=== PATIENT | male | born 1975 | race Two or more races ===

== ENCOUNTER 2017-05-07 21:24 | Emergency (ER) | payer OTHER ==
[~2017-05-07] VITALS: Ht 167.6 cm; Wt 90.7 kg
[~2017-05-07 21:24] MED LIST: IBUPROFEN600 MG ORAL; NKM; OMEPRAZOLE40 M1 ORAL; ZANTAC150 MG ORAL; ZOFRAN ODT8 MG ORAL
--- NOTE | 2017-05-07 21:40 | Emergency Room Report ---
History of Present Illness General Chief Complaint: To Be Triaged Source: Patient Present Illness HPI Is a 40-year-old male with history of diabetes but not on medication. He presents with chief complaint initially of chest pain. In reality, he had abdominal cramps with vomiting and diarrhea. Onset this morning. Multiple episode vomiting. Profuse watery diarrhea all day. Subjective fever. Chest pain occurred after vomiting. No shortness of breath. No exertional component. No diaphoresis, no radiation. Allergies: Coded Allergies: No Known Allergies (Unverified , 01/15/16) Patient History Past Medical History: see triage record, old chart reviewed, DM Past Surgical History: other Pertinent Family History: none Social History: Denies: smoking Immunizations: other Reviewed Nursing Documentation: PMH: Agreed, PSxH: Agreed Nursing Documentation-PMH Hx Gastrointestinal Problems: Yes - GERD Review of Systems Constitutional: Reports: fever, weakness Eye: Denies: eye pain, blurred vision ENT: Denies: ear pain, nose congestion, throat swelling Respiratory: Denies: cough, shortness of breath Cardiovascular: Denies: chest pain, palpitations Gastrointestinal: Reports: abdominal pain, diarrhea, nausea, vomiting Musculoskeletal: Denies: back pain, joint pain Skin: Denies: rash Neurological: Denies: headache, numbness Endocrine: Denies: increased thirst, increased urine Hematologic/Lymphatic: Denies: easy bruising All Other Systems: negative except mentioned in HPI Physical Exam vitals with tachycardia Sp02 EP Interpretation: reviewed, normal General Appearance: well appearing, no apparent distress, alert Head: normocephalic, atraumatic Eyes: bilateral eye PERRL, bilateral eye EOMI ENT: hearing grossly normal, normal pharynx Neck: full range of motion, supple, no meningismus Respiratory: chest non-tender, lungs clear, normal breath sounds Cardiovascular #1: regular rate, rhythm, no murmur, tachycardia Gastrointestinal: normal bowel sounds, non tender, no mass, no organomegaly, no bruit, non-distended Musculoskeletal: back normal, gait/station normal, normal range of motion Neurologic: alert, oriented x3 Psychiatric: mood/affect normal Skin: warm/dry Medical Decision Making Diagnostic Impression: Primary Impression: Hyperglycemia due to type 2 diabetes mellitus Qualified Codes: E11.65 - Type 2 diabetes mellitus with hyperglycemia Additional Impressions: Nausea vomiting and diarrhea Chest pain Qualified Codes: R07.9 - Chest pain, unspecified Methamphetamine abuse ER Course Present with atypical chest pain. Labs unremarkable. Pain is most likely secondary to vomiting. His heart rate was elevated. This is most likely secondary to drug abuse and dehydration from diarrhea and diabetes. Initially he claimed that methamphetamine was due to him touching it. He denies any ingestion. Heart rate improved. We'll discharge home. Lab Results Impression labs unremarkable except for elevated glucose EKG Diagnostic Results Rate: tachycardiac Rhythm: NSR ST Segments: no acute changes Rhythm Strip Diag. Results Rhythm Strip Time: 02:52 EP Interpretation: yes Rate: 107 Rhythm: NSR, no PVC's, no ectopy CT/MRI/US Diagnostic Results CT/MRI/US Diagnostic Results : Imaging Test Ordered: CT chest Impression read by radiologist. Negative. Status: improved Disposition: HOME, SELF-CARE Condition: Stable Scripts Metformin Hcl* (METFORMIN HCL*) 500 Mg Tablet 500 MG ORAL TWICE A DAY, #60 TAB Prov: SHANNON GREEN M.D. 05/08/17 Additional Instructions: Stop using drugs. Followup with your DrZan in 7 days. Take your diabetes medication. Return if symptom worsen. SHANNON GREEN M.D. May 07, 2017 21:40
[2017-05-07] MEDS ORDERED: Acetaminophen 500mg (ES) tab ORAL ONE (21:45)
[2017-05-07 22:14] LABS: BASOPHILS % (AUTO) 1.1 % (0.0-2.0); EOSINOPHILS % (AUTO) 0.5 % (0.0-3.0); LYMPHOCYTES % (AUTO) 6.7 % (20.0-45.0); MEAN CORPUSCULAR HEMOGLOBIN 29.9 PG (27.0-31.0); MEAN CORPUSCULAR HGB CONC 33.5 G/DL (32.0-36.0); MEAN CORPUSCULAR VOLUME 89 FL (80-99); MEAN PLATELET VOLUME 6.9 FL (6.5-10.1); MONOCYTES % (AUTO) 6.9 % (1.0-10.0); NEUTROPHILS % (AUTO) 84.7 % (45.0-75.0); PLATELET COUNT 269 K/UL (150-450); RED BLOOD COUNT 5.44 M/UL (4.70-6.10); RED CELL DISTRIBUTION WIDTH 11.3 % (11.6-14.8); WHITE BLOOD COUNT 9.6 K/UL (4.8-10.8)
[2017-05-07 22:36] LABS: ALBUMIN/GLOBULIN RATIO 1.2 (1.0-2.7); CALCIUM 9.7 mg/dL (8.6-10.2); CARBON DIOXIDE 20 mEQ/L (20-30); CREATININE 0.9 mg/dL (0.7-1.2); GLOMERULAR FILTRATION RATE > 60 mL/min (>60); HEMOLYSIS 45; LIPASE 95 U/L (< 60); TOTAL PROTEIN 6.7 g/dL (6.6-8.7)
[2017-05-07 22:37] LABS: ANION GAP 20 (5-15); CHLORIDE 83 mEQ/L (98-107); SODIUM 123 mEQ/L (135-145)
[2017-05-07 22:48] LABS: ALANINE AMINOTRANSFERASE 5 U/L (3-41); ASPARTATE AMINO TRANSFERASE < 5 U/L (5-40)
[2017-05-07 23:04] LABS: APPEARANCE,URINE CLEAR; KETONES,URINE 1+ (NEGATIVE); LEUKOCYTE ESTERASE ,URINE NEGATIVE (NEGATIVE); NITRITE,URINE NEGATIVE (NEGATIVE); PH,URINE 5 (4.5-8.0); PROTEIN,URINE 2+ (NEGATIVE); UROBILINOGEN,URINE NORMAL MG/DL (0.0-1.0)
[2017-05-07 23:15] LABS: BACTERIA,URINE FEW /HPF; RBC,URINE 0-2 /HPF (0 - 0); WBC,URINE 0-2 /HPF (0 - 0)
[2017-05-08] MEDS ORDERED: Morphine Sulfate 4mg/ml Inj IVP ONE (00:30)
[2017-05-08 00:42] LABS: TROPONIN I < 0.30 ng/mL (<=0.30)
[2017-05-08 01:14] VITALS: BP 144/89
[2017-05-08] MEDS ORDERED: METFORMIN HCL500 M1 ORAL (02:53)
[2017-05-08 03:32] VITALS: BP 138/91
--- NOTE | 2017-05-08 10:22 | Diagnostic Imaging Report ---
Indication: Chest pain Technique: Continuous helical transaxial imaging of the chest was obtained from the thoracic inlet to the upper abdomen during rapid intravenous contrast administration. Arterial phase of enhancement obtained. Coronal 2-D reformats were also obtained and maximum intensity projection images in multiple planes. Study obtained in a Siemens sensation [address] Total Dose length Product (DLP): [address] Dose Index Volume (CTDIvol): 2.17, 12.62x3, 30.87 mGy Comparison: None Findings: The pulmonary artery is well opacified and shows no filling defects. The lungs are clear. There is no adenopathy, pleural or pericardial effusions are identified. The aortic dissection or aneurysm identified within the chest. Visualized part of the upper abdomen is unremarkable. Impression: Negative CTA of the chest The CT scanner at [facility] is accredited by the [employer] and the scans are performed using dose optimization techniques as appropriate to a performed exam including Automatic Exposure control.
--- NOTE | 2017-05-16 23:23 | Cardiology Report ---
APPROVED REPORT EKG Measurement Heart [id number] Sinus tachycardia Possible Anterior infarct, age undetermined Abnormal ECG
== END 2017-05-08 02:55 | disposition home or self-care (01) ==
LOC: EMR 22:30
DX: E11.65 Type 2 diabetes mellitus with hyperglycemia (principal); R11.2 Nausea with vomiting, unspecified; R19.7 Diarrhea, unspecified; R07.89 Other chest pain; R10.9 Unspecified abdominal pain; R53.1 Weakness
CPT/HCPCS: 36415; 71275; 80053; 80300; 81003; 83690; 84484; 85025; 93005; 96361; 96374; 96375; 99284; J1815; J2270; J2405; Q9967

== ENCOUNTER 2018-07-31 18:13 | Emergency (ER) | payer OTHER ==
[~2018-07-31] VITALS: Ht 167.6 cm; Wt 88.0 kg
[~2018-07-31 18:13] MED LIST changes: +METFORMIN HCL500 M1 ORAL
--- NOTE | 2018-07-31 18:41 | Emergency Room Report ---
History of Present Illness General Chief Complaint: Flu Like Symptoms Source: Patient Present Illness HPI Patient presents with cough, wheezing and chest pain. It's been worsening over the course of 2 weeks. He was seen before and given Flonase but and some cough syrup but it it's gotten worse since that time. He did not get a flu shot this year. The patient is diabetic also. He's not sure how his sugars have been recently. He was sent here by his doctors because they heard wheezing. He's never used an inhaler in the past. He stopped smoking at least 20 years ago. Allergies: Coded Allergies: No Known Allergies (Unverified , 01/15/16) Patient History Past Medical History: see triage record Social History: Denies: smoking - prior Reviewed Nursing Documentation: PMH: Agreed; PSxH: Agreed Nursing Documentation-PMH Hx Hypertension: Yes Hx Diabetes: Yes Hx Gastrointestinal Problems: Yes - GERD Physical Exam Vital Signs Date Time Temp Pulse Resp B/P (MAP) Pulse Ox O2 Delivery O2 Flow Rate FiO2 07/31/18 18:22 98.1 126 26 95/60 96 Room Air Medical Decision Making Diagnostic Impression: Primary Impression: Atypical pneumonia Additional Impressions: Bronchospasm Hyperglycemia Renal insufficiency Laboratory Tests Test 07/31/18 19:05 07/31/18 20:30 White Blood Count 12.3 K/UL (4.8-10.8) H Red Blood Count 4.63 M/UL (4.70-6.10) L Hemoglobin 13.4 G/DL (14.2-18.0) L Hematocrit 39.1 % (42.0-52.0) L Mean Corpuscular Volume 84 FL (80-99) Mean Corpuscular Hemoglobin 29.0 PG (27.0-31.0) Mean Corpuscular Hemoglobin Concent 34.4 G/DL (32.0-36.0) Red Cell Distribution Width 10.7 % (11.6-14.8) L Platelet Count 412 K/UL (150-450) Mean Platelet Volume 7.1 FL (6.5-10.1) Neutrophils (%) (Auto) 73.7 % (45.0-75.0) Lymphocytes (%) (Auto) 19.1 % (20.0-45.0) L Monocytes (%) (Auto) 5.4 % (1.0-10.0) Eosinophils (%) (Auto) 0.6 % (0.0-3.0) Basophils (%) (Auto) 1.2 % (0.0-2.0) Sodium Level 129 MMOL/L (136-145) L Potassium Level 4.5 MMOL/L (3.5-5.1) Chloride Level 94 MMOL/L (98-107) L Carbon Dioxide Level 23 MMOL/L (21-32) Anion Gap 12 mmol/L (5-15) Blood Urea Nitrogen 17 mg/dL (7-18) Creatinine 1.6 MG/DL (0.55-1.30) H Estimate Glomerular Filtration Rate 47.0 mL/min (>60) Glucose Level 389 MG/DL (74-106) H Calcium Level 9.4 MG/DL (8.5-10.1) Total Bilirubin 0.4 MG/DL (0.2-1.0) Aspartate Amino Transferase (AST) 46 U/L (15-37) H Alanine Aminotransferase (ALT) 50 U/L (12-78) Alkaline Phosphatase 141 U/L (46-116) H Total Creatine Kinase 88 U/L (26-308) Troponin I 0.000 ng/mL (0.000-0.056) Total Protein 7.4 G/DL (6.4-8.2) Albumin 2.8 G/DL (3.4-5.0) L Globulin 4.6 g/dL Albumin/Globulin Ratio 0.6 (1.0-2.7) L Urine Color Pale yellow Urine Appearance Clear Urine pH 7 (4.5-8.0) Urine Specific [place] 1.010 (1.005-1.035) Urine Protein 2+ (NEGATIVE) H Urine Glucose (UA) 4+ (NEGATIVE) H Urine Ketones Negative (NEGATIVE) Urine Blood Negative (NEGATIVE) Urine Nitrite Negative (NEGATIVE) Urine Bilirubin Negative (NEGATIVE) Urine Urobilinogen Normal MG/DL (0.0-1.0) Urine Leukocyte Esterase 2+ (NEGATIVE) H Urine RBC 0-2 /HPF (0 - 0) H Urine WBC 2-4 /HPF (0 - 0) Urine Squamous Epithelial Cells Few /LPF (NONE/OCC) Urine Bacteria Occasional /HPF (NONE) Microbiology Date/Time Source Procedure Growth Status 07/31/18 19:05 Nasal Nares Influenza Types A,B Antigen (AVA) - Final Complete EKG Diagnostic Results Rate: tachycardiac ST Segments: no acute changes Rhythm Strip Diag. Results EP Interpretation: yes Rhythm: NSR, no PVC's, no ectopy Chest X-Ray Diagnostic Results Chest X-Ray Diagnostic Results : Chest X-Ray Ordered: Yes # of Views/Limited/Complete: 1 View Indication: Other EP Interpretation: Yes Interpretation: no consolidation, no effusion, no pneumothorax Impression: No acute disease Electronically Signed by: Electronically signed by Tunde Grimaldo MD Status: improved Disposition: HOME, SELF-CARE Condition: Improved Tunde Grimaldo MD Jul 31, 2018 18:41
[2018-07-31] MEDS ORDERED: Ipratropium 0.02% Inh Soln 2.5ml UD HHN ONE (18:45)
[2018-07-31] MEDS ORDERED: Albuterol ud Inhalation HHN ONE ×2 (18:45→19:45)
[2018-07-31 19:00] VITALS: BP 98/62
[2018-07-31 19:24] LABS: BASOPHILS % (AUTO) 1.2 % (0.0-2.0); EOSINOPHILS % (AUTO) 0.6 % (0.0-3.0); HEMATOCRIT 39.1 % (42.0-52.0); HEMOGLOBIN 13.4 G/DL (14.2-18.0); LYMPHOCYTES % (AUTO) 19.1 % (20.0-45.0); MEAN CORPUSCULAR VOLUME 84 FL (80-99); MONOCYTES % (AUTO) 5.4 % (1.0-10.0); NEUTROPHILS % (AUTO) 73.7 % (45.0-75.0); PLATELET COUNT 412 K/UL (150-450); RED BLOOD COUNT 4.63 M/UL (4.70-6.10); RED CELL DISTRIBUTION WIDTH 10.7 % (11.6-14.8); WHITE BLOOD COUNT 12.3 K/UL (4.8-10.8)
[2018-07-31 19:28] LABS: ANION GAP 12 mmol/L (5-15); BLOOD UREA NITROGEN 17 mg/dL (7-18); CALCIUM 9.4 MG/DL (8.5-10.1); CARBON DIOXIDE 23 MMOL/L (21-32); CHLORIDE 94 MMOL/L (98-107); CREATININE 1.6 MG/DL (0.55-1.30); POTASSIUM 4.5 MMOL/L (3.5-5.1); SODIUM 129 MMOL/L (136-145)
[2018-07-31 19:33] LABS: ALANINE AMINOTRANSFERASE 50 U/L (12-78); ALBUMIN 2.8 G/DL (3.4-5.0); ALBUMIN/GLOBULIN RATIO 0.6 (1.0-2.7); ALKALINE PHOSPHATASE 141 U/L (46-116); ASPARTATE AMINO TRANSFERASE 46 U/L (15-37); BILIRUBIN,TOTAL 0.4 MG/DL (0.2-1.0); CREATINE KINASE 88 U/L (26-308)
[2018-07-31 20:43] LABS: APPEARANCE,URINE CLEAR; BILIRUBIN, URINE NEGATIVE (NEGATIVE); COLOR,URINE PALE YELLOW; GLUCOSE, URINE (UA) 4+ (NEGATIVE); KETONES,URINE NEGATIVE (NEGATIVE); LEUKOCYTE ESTERASE ,URINE 2+ (NEGATIVE); NITRITE,URINE NEGATIVE (NEGATIVE); PH,URINE 7 (4.5-8.0); PROTEIN,URINE 2+ (NEGATIVE); UROBILINOGEN,URINE NORMAL MG/DL (0.0-1.0)
[2018-07-31] MEDS ORDERED: Insulin Human Regular 100units/ml 3ml IV ONE (20:45)
[2018-07-31] MEDS ORDERED: Lidocaine 1% MPF 10mg/ml 5ml HHN ONE (20:45)
[2018-07-31 21:34] VITALS: BP 96/66
[2018-07-31] MEDS ORDERED: LEVAQUIN500 MG ORAL (22:12)
[2018-07-31] MEDS ORDERED: GUAIFENESIN-CO118 M1 ORAL (22:12)
[2018-07-31] MEDS ORDERED: ALBUTEROL SULF8.5 GM INH (22:12)
[2018-07-31] MEDS ORDERED: Levofloxacin 500mg tab ORAL ONE (22:15)
[2018-07-31 22:20] VITALS: BP 112/75
--- NOTE | 2018-08-01 04:28 | Emergency Room Report ---
History of Present Illness General Chief Complaint: Flu Like Symptoms Source: Patient Present Illness HPI Patient presents with cough, wheezing and chest pain. It's been worsening over the course of 2 weeks. He was seen before and given Flonase but and some cough syrup but it it's gotten worse since that time. He did not get a flu shot this year. He feels something in his throat with pain rated 9/10, sharp and worse with attempting to swallow. Able to tolerate eating. No change in voice. Chest pain is with cough, not pleuritic. The patient is diabetic also. He's not sure how his sugars have been recently. He was sent here by his doctors because they heard wheezing. He's never used an inhaler in the past. He stopped smoking at least 20 years ago. No NVD, headache, rashes, weakness, dizziness. He has had a white buildup under his foreskin. Not sexually active. No dysuria. Allergies: Coded Allergies: No Known Allergies (Unverified , 01/15/16) Patient History Past Medical History: see triage record Social History: Denies: smoking - stopped many years ago Social History Narrative with son Reviewed Nursing Documentation: PMH: Agreed; PSxH: Agreed Nursing Documentation-PMH Hx Hypertension: Yes Hx Diabetes: Yes Hx Gastrointestinal Problems: Yes - GERD Review of Systems All Other Systems: negative except mentioned in HPI Physical Exam Vital Signs Date Time Temp Pulse Resp B/P (MAP) Pulse Ox O2 Delivery O2 Flow Rate FiO2 07/31/18 18:22 98.1 126 26 95/60 96 Room Air 07/31/18 18:57 21 Sp02 EP Interpretation: reviewed, normal General Appearance: well appearing, GCS 15, other - paroxysms of coughing Head: normocephalic Eyes: bilateral eye normal inspection, bilateral eye PERRL ENT: no angioedema, normal voice, moist mucus membranes, pharyngeal erythema, other - No [employer] Neck: supple Respiratory: lungs clear, normal breath sounds, wheezing - post tussive Cardiovascular #1: no edema, tachycardia Cardiovascular #2: 2+ radial (R) Gastrointestinal: normal inspection, normal bowel sounds, non tender, no mass, non-distended Musculoskeletal: back normal, gait/station normal, normal range of motion, no calf tenderness, Sheela's Sign negative Neurologic: alert, oriented x3, grossly normal Psychiatric: other - bothered by cough Skin: normal inspection, warm/dry Medical Decision Making Diagnostic Impression: Primary Impression: Atypical pneumonia Additional Impressions: Bronchospasm Hyperglycemia Renal insufficiency Pharyngitis Qualified Codes: J02.9 - Acute pharyngitis, unspecified Monilia of penis ER Course Patient presents with persistent cough and wheezing. DDx: PNA, bronchospasm, bronchitis, AMI, PE amongst others. Evaluation with EKG, CXR and labs. Treatment with breathing treatments. Consideration for steroids, though, recently treated with these and not improved and some complications (white buildup penis). Cardiac monitoring. With purulent phlegm, most likely infectious etiology. Doubt PE based on exam. EKG without injury. CXR no major infiltrate, though some increased freitas. WBC elevated. Glucose elevated. Renal insufficiency. Troponin neg. Still with paroxysms of cough and wheezing. Repeat breathing treatment. Still with cough. Inhaled lidocaine. With hyperglycemia and lack of eosinophilia, doubt steroid would help. Insulin given. Improved glucose. (Consider elevation due to steroids.) Improved with treatment. Due to constellation of symptoms, co-morbidities and renal insufficiency, suggested admission to hospital. Patient states he feels better and want trial of outpatient observation. Discussed treatment plan. Instructed on inhaler use. Also advised patient and son that if not doing well to return. Patient stable for close outpatient observation and treatment. Laboratory Tests Test 07/31/18 19:05 07/31/18 20:30 White Blood Count 12.3 K/UL (4.8-10.8) H Red Blood Count 4.63 M/UL (4.70-6.10) L Hemoglobin 13.4 G/DL (14.2-18.0) L Hematocrit 39.1 % (42.0-52.0) L Mean Corpuscular Volume 84 FL (80-99) Mean Corpuscular Hemoglobin 29.0 PG (27.0-31.0) Mean Corpuscular Hemoglobin Concent 34.4 G/DL (32.0-36.0) Red Cell Distribution Width 10.7 % (11.6-14.8) L Platelet Count 412 K/UL (150-450) Mean Platelet Volume 7.1 FL (6.5-10.1) Neutrophils (%) (Auto) 73.7 % (45.0-75.0) Lymphocytes (%) (Auto) 19.1 % (20.0-45.0) L Monocytes (%) (Auto) 5.4 % (1.0-10.0) Eosinophils (%) (Auto) 0.6 % (0.0-3.0) Basophils (%) (Auto) 1.2 % (0.0-2.0) Sodium Level 129 MMOL/L (136-145) L Potassium Level 4.5 MMOL/L (3.5-5.1) Chloride Level 94 MMOL/L (98-107) L Carbon Dioxide Level 23 MMOL/L (21-32) Anion Gap 12 mmol/L (5-15) Blood Urea Nitrogen 17 mg/dL (7-18) Creatinine 1.6 MG/DL (0.55-1.30) H Estimate Glomerular Filtration Rate 47.0 mL/min (>60) Glucose Level 389 MG/DL (74-106) H Calcium Level 9.4 MG/DL (8.5-10.1) Total Bilirubin 0.4 MG/DL (0.2-1.0) Aspartate Amino Transferase (AST) 46 U/L (15-37) H Alanine Aminotransferase (ALT) 50 U/L (12-78) Alkaline Phosphatase 141 U/L (46-116) H Total Creatine Kinase 88 U/L (26-308) Troponin I 0.000 ng/mL (0.000-0.056) Total Protein 7.4 G/DL (6.4-8.2) Albumin 2.8 G/DL (3.4-5.0) L Globulin 4.6 g/dL Albumin/Globulin Ratio 0.6 (1.0-2.7) L Urine Color Pale yellow Urine Appearance Clear Urine pH 7 (4.5-8.0) Urine Specific [place] 1.010 (1.005-1.035) Urine Protein 2+ (NEGATIVE) H Urine Glucose (UA) 4+ (NEGATIVE) H Urine Ketones Negative (NEGATIVE) Urine Blood Negative (NEGATIVE) Urine Nitrite Negative (NEGATIVE) Urine Bilirubin Negative (NEGATIVE) Urine Urobilinogen Normal MG/DL (0.0-1.0) Urine Leukocyte Esterase 2+ (NEGATIVE) H Urine RBC 0-2 /HPF (0 - 0) H Urine WBC 2-4 /HPF (0 - 0) Urine Squamous Epithelial Cells Few /LPF (NONE/OCC) Urine Bacteria Occasional /HPF (NONE) Microbiology Date/Time Source Procedure Growth Status 07/31/18 19:05 Nasal Nares Influenza Types A,B Antigen (AVA) - Final Complete EKG Diagnostic Results Rate: tachycardiac Rhythm: other ST Segments: no acute changes Rhythm Strip Diag. Results EP Interpretation: yes Rhythm: no PVC's, no ectopy, other - ST Chest X-Ray Diagnostic Results Chest X-Ray Diagnostic Results : Chest X-Ray Ordered: Yes # of Views/Limited/Complete: 1 View Indication: Other EP Interpretation: Yes Interpretation: no consolidation, no effusion, no pneumothorax, other - poor inspiration Impression: Other Electronically Signed by: Tunde Grimaldo MD Last Vital Signs Date Time Temp Pulse Resp B/P (MAP) Pulse Ox O2 Delivery O2 Flow Rate FiO2 07/31/18 22:20 98.5 109 17 112/75 97 Room Air 07/31/18 20:13 21 Status: improved Disposition: HOME, SELF-CARE Condition: Improved Scripts Albuterol Sulfate* (ALBUTEROL SULFATE MDI*) 8.5 Gm Hfa.aer.ad 2 PUFF INH Q6H, #1 EA 0 Refills Prov: Tunde Grimaldo MD 07/31/18 Guaifenesin/Codeine Phos* (ROBITUSSIN AC*) 118 Ml Liquid 5 ML ORAL Q6H PRN for For Cough, #90 ML 0 Refills Prov: Tunde Grimaldo MD 07/31/18 Levofloxacin* (LEVAQUIN*) 500 Mg Tablet 500 MG ORAL DAILY, #7 TAB Prov: Tunde Grimaldo MD 07/31/18 Referrals: [facility],REFERRING (PCP) Patient Instructions: Bronchospasm, Adult, Genital Yeast Infection, Male, Hyperglycemia Additional Instructions: Return if you are using the inhaler more than every 3 hours. Call your doctor tomorrow. Take your labs with you. OK to take Tylenol. Tunde Grimaldo MD Aug 01, 2018 04:28
--- NOTE | 2018-08-01 11:56 | Diagnostic Imaging Report ---
Indication: Chest pain Technique: One view of the chest Comparison: none Findings: Suboptimal inspiration. Lungs and pleural spaces are clear. The heart size is normal Impression: Negative
== END 2018-07-31 22:20 | disposition home or self-care (01) ==
LOC: EMR 18:57
DX: J18.9 Pneumonia, unspecified organism (principal); J98.01 Acute bronchospasm; E11.65 Type 2 diabetes mellitus with hyperglycemia; N28.9 Disorder of kidney and ureter, unspecified; J02.9 Acute pharyngitis, unspecified; B37.89 Other sites of candidiasis; I10 Essential (primary) hypertension; K21.9 Gastro-esophageal reflux disease without esophagitis
CPT/HCPCS: 36415; 71045; 80053; 81003; 82550; 84484; 85025; 86710; 93005; 94640; 94664; 96361; 96374; 99284; J1815

== ENCOUNTER 2019-08-02 15:11 | Emergency (ER) | payer OTHER ==
[~2019-08-02] VITALS: Ht 152.4 cm; Wt 83.5 kg
[~2019-08-02 15:11] MED LIST changes: +ALBUTEROL SULF8.5 GM INH; +GUAIFENESIN-CO118 M1 ORAL; +LEVAQUIN500 MG ORAL
[2019-08-02 15:20] VITALS: BP 127/77
[2019-08-02] MEDS ORDERED: Gadavist 7.5mMol/7.5ml vial IV PRN (15:45)
[2019-08-02] MEDS ORDERED: Methocarbamol 750mg tab ORAL ONE (15:45)
[2019-08-02] MEDS ORDERED: Ketorolac 30mg Inj IV ONE (15:45)
--- NOTE | 2019-08-02 15:47 | Emergency Room Report ---
History of Present Illness General Chief Complaint: Lower Back Pain or Injury Source: Patient Present Illness [facility] Disclaimer: Please note that this report is being documented using DRAGON technology. This can lead to erroneous entry secondary to incorrect interpretation by the dictating instrument. HPI: 44-year-old male with history of diet-controlled diabetes presents for evaluation of back pain. Symptoms began approximately 2 weeks ago. There is no inciting injury. The patient noticed an aching in his lower back over the midline while washing dishes. Slowly progressing. Now he has pain shooting down the posterior aspect of his left thigh to the knee. Ambulation is more difficult now due to pain. He also notes some difficulty initiating urination and sometimes has to sit to initiate. Denies lower extremity weakness, saddle anesthesia or fecal incontinence. He noted some sweats last night during sleep. Denies other objective fevers. Otherwise denies any cough, congestion, sore throat or source of infection. Denies vomiting but did report some nausea. Denies diarrhea. No history of back injury or spine surgery. Does not inject any drugs or medications. PMH: Diet-controlled diabetes PSH: Denies Allergies: None reported Social Hx: Denies Allergies: Coded Allergies: No Known Allergies (Unverified , 01/15/16) Nursing Documentation-PMH Past Medical History: No History, Except For Hx Hypertension: Yes Hx Diabetes: Yes Hx Gastrointestinal Problems: Yes - GERD Review of Systems All Other Systems: negative except mentioned in HPI Physical Exam Vital Signs Date Time Temp Pulse Resp B/P (MAP) Pulse Ox O2 Delivery O2 Flow Rate FiO2 08/02/19 15:17 97.5 125 20 157/108 (124) 99 Room Air General: Awake and alert, appears uncomfortable HEENT: NC/AT. EOMI. Cardiovascular: Tachycardic. S1 and S2 normal. No murmur appreciated Resp: Normal work of breathing. No cough, wheezing or crackles appreciated Abdomen: Abdomen is soft, nondistended. Nontender Skin: Intact. No abrasions, laceration or rash over the exposed skin MSK: Normal tone and bulk. Moving all extremities. No obvious deformity. Able to straight leg raise bilaterally though left side limited by pain. Neuro: Awake and alert. Mentating appropriately. Sensation is intact over the dermatomes of the lower extremities bilaterally. No saddle anesthesia. Back/Spine: No midline tenderness in the cervical, thoracic spine. There is midline tenderness over the mid and lower lumbar regions. Moderate paraspinal tenderness as well. No deformity. No overlying cellulitis, no mass. Procedures Critical Care Time Critical Care Time Total critical care time: Approximately 45 minutes Due to a high probability of clinically significant, life threatening deterioration, the patient required the highest level of preparedness to intervene emergently and I personally spent this critical care time directly and personally managing the patient. This critical care time included obtaining a history, examining the patient, pulse oximetry, ordering and reviewing studies , ordering treatments, evaluating response to treatment and updating management plan as needed, frequent reassessment and discussion with other providers as well as arranging for ultimate disposition. This critical to care time was performed to assess and manage the high probability of life-threatening deterioration that could result in multiorgan failure. This critical care time is separate from the separately billable procedures and treating other patients. Medical Decision Making Diagnostic Impression: Primary Impression: UTI (urinary tract infection) Additional Impressions: Lactic acidosis Sepsis Lumbar disc herniation Hyperglycemia ER Course Is a 44-year-old male presenting for 2 weeks worsening atraumatic back pain with sciatic-like symptoms rating down the left leg. Differential includes was not limited to lumbosacral strain, paraspinal strain, sciatica, spinal abscess, discitis, osteomyelitis. Given his tachycardia, reports of sweats and reports of difficulty initiating urination patient will require advanced imaging to rule out cauda equina syndrome and spinal epidural abscess or other types of minor infection. We will start broad metabolic and infectious work-up, treat the patient with muscle relaxers and pain medication and sent for an MRI with and without contrast of lumbar spine. Laboratory Tests Test 08/02/19 16:00 08/02/19 17:20 08/02/19 18:20 White Blood Count 8.3 K/UL (4.8-10.8) Red Blood Count 5.69 M/UL (4.70-6.10) Hemoglobin 17.3 G/DL (14.2-18.0) Hematocrit 47.8 % (42.0-52.0) Mean Corpuscular Volume 84 FL (80-99) Mean Corpuscular Hemoglobin 30.5 PG (27.0-31.0) Mean Corpuscular Hemoglobin Concent 36.3 G/DL (32.0-36.0) H Red Cell Distribution Width 9.5 % (11.6-14.8) L Platelet Count 326 K/UL (150-450) Mean Platelet Volume 6.7 FL (6.5-10.1) Neutrophils (%) (Auto) 64.5 % (45.0-75.0) Lymphocytes (%) (Auto) 27.2 % (20.0-45.0) Monocytes (%) (Auto) 5.7 % (1.0-10.0) Eosinophils (%) (Auto) 1.4 % (0.0-3.0) Basophils (%) (Auto) 1.2 % (0.0-2.0) Erythrocyte Sedimentation Rate 31 MM/HR (0-15) H Urine Color Pale yellow Urine Appearance Slightly cloudy Urine pH 6 (4.5-8.0) Urine Specific [place] 1.015 (1.005-1.035) Urine Protein 3+ (NEGATIVE) H Urine Glucose (UA) 4+ (NEGATIVE) H Urine Ketones Negative (NEGATIVE) Urine Blood 1+ (NEGATIVE) H Urine Nitrite Negative (NEGATIVE) Urine Bilirubin Negative (NEGATIVE) Urine Urobilinogen Normal MG/DL (0.0-1.0) Urine Leukocyte Esterase 2+ (NEGATIVE) H Urine RBC 5-10 /HPF (0 - 0) H Urine WBC 40-60 /HPF (0 - 0) H Urine Squamous Epithelial Cells Many /LPF (NONE/OCC) H Urine Bacteria Few /HPF (NONE) Urine Yeast Occasional /HPF (NONE) H Sodium Level 128 MMOL/L (136-145) L Potassium Level 4.2 MMOL/L (3.5-5.1) Chloride Level 93 MMOL/L (98-107) L Carbon Dioxide Level 20 MMOL/L (21-32) L Anion Gap 15 mmol/L (5-15) Blood Urea Nitrogen 19 mg/dL (7-18) H Creatinine 1.1 MG/DL (0.55-1.30) Estimate Glomerular Filtration Rate > 60 mL/min (>60) Glucose Level 575 MG/DL (74-106) *H Calcium Level 9.6 MG/DL (8.5-10.1) Total Bilirubin 0.5 MG/DL (0.2-1.0) Aspartate Amino Transferase (AST) < 5 U/L (15-37) L Alanine Aminotransferase (ALT) < 6 U/L (12-78) L Alkaline Phosphatase 180 U/L (46-116) H C-Reactive Protein, Quantitative < 0.4 mg/dL (0.00-0.90) Total Protein 6.4 G/DL (6.4-8.2) Albumin 2.6 G/DL (3.4-5.0) L Globulin 3.8 g/dL Albumin/Globulin Ratio 0.7 (1.0-2.7) L Lactic Acid Level 4.00 mmol/L (0.4-2.0) H Pending CT/MRI/US Diagnostic Results CT/MRI/US Diagnostic Results : Impression Numbers: [id number] Preliminary Findings Only See Final Report For Complete Findings MRI L SPINE : No abnormal postcontrast enhancement. No evidence for discitis, osteomyelitis. Lumbar degenerative disc disease and facet hypertrophy. Posterior disc bulge T12 -L1, L1-L2, L2-L3, large left subarticular disc extrusion at L2-L3 which causes severe narrowing of the left frontal recess and mild to moderate spinal canal narrowing. Disc material extends 1.8 cm inferiorly along the L3 vertebral body. Posterior disc bulge and superimposed posterior central disc protrusion L4-5. Mild spinal canal narrowing L4-L5. Impression: No evidence for infection. Large left subarticular disc extrusion L2-L3 severely narrowing the left lateral recess impinging on the left L3 nerve root. [id number] spinal canal narrowing. Radiologist: Koby Ayers MD Study ready at 18:36 and initial results transmitted at 19:16 Reevaluation Time: 19:21 Last Vital Signs Date Time Temp Pulse Resp B/P (MAP) Pulse Ox O2 Delivery O2 Flow Rate FiO2 08/02/19 15:17 97.5 125 20 157/108 (124) 99 Room Air Reevaluation Impression Labs show normal white count and no shift. ESR is slightly elevated at 31 but CRP is normal. Patient shows a slight hyponatremia 128 and slightly elevated BUN 19 creatinine and renal function are within normal limits. Glucose is significantly elevated at 575 without an anion gap. Improving after receiving insulin and IV fluids. Patient does have a lactic acidosis with initial lactate of 4.0 improving to 2.2 after receiving IV fluids. Urinalysis grossly positive for acute urinary tract infection. MRI of the spine shows no evidence of discitis or paraspinal abscess. Does show disc herniation At the L2-L3 space severely narrowing the left lateral recess impinging on the L3 nerve root with mild to moderate spinal canal narrowing. Patient received Rocephin for his urinary tract infection. Continues to receive IV fluids and pain medication. Will require admission for treatment of urosepsis. Tachycardia is improving though still in the 110s. Disposition: [facility] HOSP Condition: Serious Darren Sullivan MD Aug 02, 2019 15:47
[2019-08-02 16:22] LABS: BASOPHILS % (AUTO) 1.2 % (0.0-2.0); EOSINOPHILS % (AUTO) 1.4 % (0.0-3.0); HEMATOCRIT 47.8 % (42.0-52.0); HEMOGLOBIN 17.3 G/DL (14.2-18.0); LYMPHOCYTES % (AUTO) 27.2 % (20.0-45.0); MEAN CORPUSCULAR VOLUME 84 FL (80-99); MONOCYTES % (AUTO) 5.7 % (1.0-10.0); NEUTROPHILS % (AUTO) 64.5 % (45.0-75.0); PLATELET COUNT 326 K/UL (150-450); RED BLOOD COUNT 5.69 M/UL (4.70-6.10); RED CELL DISTRIBUTION WIDTH 9.5 % (11.6-14.8); WHITE BLOOD COUNT 8.3 K/UL (4.8-10.8)
[2019-08-02 16:29] LABS: APPEARANCE,URINE SLIGHTLY CLOUDY; BILIRUBIN, URINE NEGATIVE (NEGATIVE); COLOR,URINE PALE YELLOW; GLUCOSE, URINE (UA) 4+ (NEGATIVE); KETONES,URINE NEGATIVE (NEGATIVE); LEUKOCYTE ESTERASE ,URINE 2+ (NEGATIVE); NITRITE,URINE NEGATIVE (NEGATIVE); PH,URINE 6 (4.5-8.0); PROTEIN,URINE 3+ (NEGATIVE); UROBILINOGEN,URINE NORMAL MG/DL (0.0-1.0)
[2019-08-02 16:36] LABS: ALANINE AMINOTRANSFERASE < 6 U/L (12-78); ALBUMIN 2.6 G/DL (3.4-5.0); ALBUMIN/GLOBULIN RATIO 0.7 (1.0-2.7); ALKALINE PHOSPHATASE 180 U/L (46-116); ANION GAP 15 mmol/L (5-15); ASPARTATE AMINO TRANSFERASE < 5 U/L (15-37); BILIRUBIN,TOTAL 0.5 MG/DL (0.2-1.0); BLOOD UREA NITROGEN 19 mg/dL (7-18); CALCIUM 9.6 MG/DL (8.5-10.1); CARBON DIOXIDE 20 MMOL/L (21-32); CHLORIDE 93 MMOL/L (98-107); CREATININE 1.1 MG/DL (0.55-1.30); POTASSIUM 4.2 MMOL/L (3.5-5.1); SODIUM 128 MMOL/L (136-145)
[2019-08-02] MEDS ORDERED: Morphine Sulfate 4mg/ml Inj (IV USE ONLY) IVP ONE ×3 (17:00→20:30)
[2019-08-02] MEDS ORDERED: Insulin Human Regular 100units/ml 3ml IV ONE (17:00)
[2019-08-02] MEDS ORDERED: cefTRIAXone 1 GM in NS 55 ML IVPB ONE (17:00)
[2019-08-02 19:10] VITALS: BP 144/110
[2019-08-02 22:30] VITALS: BP 142/109
--- NOTE | 2019-08-03 09:17 | Diagnostic Imaging Report ---
Indication: Low back pain, left-sided radiculopathy Technique: Sagittal T1 FSE, sagittal T2 FRFSE, sagittal STIR, axial T2 FRFSE, axial T1, axial T2 disc cut, pre and postcontrast axial T1 fat-saturated, sagittal T1 postcontrast fat-saturated images of the lumbar spine Comparison: none Findings: Vertebral body heights are preserved. Vertebral body marrow signal is normal. The disc spaces are preserved. There is desiccation of all but the L5-S1 discs. The conus medullaris terminates at the T12-L1 level. At T12-L1, there is circumferential annular bulge which does not significantly narrow the spinal canal or neural foramina. At L1-2, there is broad-based posterior disc protrusion. This does not significantly since narrow the spinal canal or compromise the neural foramina or lateral recesses. At L2-3, there is circumferential annular bulge. There is a large left-sided disc extrusion, which completely obliterates the lateral recess on the left below the disc level. The extruded disc fragment measures 10.7 mm AP by 13 mm transverse by 15 mm craniocaudad, and occurs below the disc level. There is some enhancement of the L3 superior endplate as well as evidence of some edema. There is also some slight enhancement of the disc fragment and the surrounding tissues within the spinal canal. At L3-4, there is mild circumferential annular bulge which does not significant compromise spinal canal or neural foramina. At L4-5, there is broad-based central posterior disc protrusion, which does not significantly compromise the spinal canal. There is suggestion of mild right neural foraminal compromise. At L5-S1, no significant disc bulge or protrusion, spinal stenosis, or neural foraminal stenosis. No significant enhancement is seen elsewhere. The included extra spinal soft tissues are unremarkable Impression: Positive for large extruded disc fragment at the L2-3 level, extending below the disc into the left epidural space and obliterating the left lateral recess at this level. There is mild associated enhancement Much less severe degenerative changes elsewhere, as delineated on a level by level basis above This agrees with the preliminary interpretation provided overnight by [facility] teleradiology service.
== END 2019-08-02 22:30 | disposition short-term general hospital (02) ==
LOC: EMR 15:55
DX: A41.9 Sepsis, unspecified organism (principal); N39.0 Urinary tract infection, site not specified; E87.2 Acidosis; M51.26 Other intervertebral disc displacement, lumbar region; E11.65 Type 2 diabetes mellitus with hyperglycemia; K21.9 Gastro-esophageal reflux disease without esophagitis; I10 Essential (primary) hypertension
CPT/HCPCS: 36415; 72158; 80053; 81003; 82962; 83605; 85025; 85651; 86140; 87086; 87181; 96361; 96365; 96375; 96376; A9585; J0696; J1815; J1885; J2270; J7030; Z7502; 99284

== ENCOUNTER 2020-07-12 14:11 | Emergency (ER) | payer OTHER ==
[~2020-07-12] VITALS: Ht 167.6 cm; Wt 88.5 kg
[~2020-07-12 14:11] MED LIST changes: +LIDODERM700 M1 TOPIC; +NAPROXEN250 MG ORAL; +NORCO 5-325 TA1 EACH ORAL; +ROBAXIN-750750 MG PO
[2020-07-12 14:40] VITALS: BP 108/78
[2020-07-12] MEDS ORDERED: Omnipaque-300 100ml vial INJ PRN (14:45)
[2020-07-12 15:02] LABS: CREATININE 1.5 MG/DL (0.55-1.30); POTASSIUM 4.9 MMOL/L (3.5-5.1)
[2020-07-12 15:07] LABS: ALBUMIN 3.4 G/DL (3.4-5.0); ALBUMIN/GLOBULIN RATIO 0.7 (1.0-2.7); BILIRUBIN,TOTAL 0.6 MG/DL (0.2-1.0)
[2020-07-12 15:11] LABS: BASOPHILS % (AUTO) 0.7 % (0.0-2.0); HEMATOCRIT 45.7 % (42.0-52.0); HEMOGLOBIN 16.3 G/DL (14.2-18.0); LYMPHOCYTES % (AUTO) 27.3 % (20.0-45.0); MEAN CORPUSCULAR VOLUME 79 FL (80-99); MONOCYTES % (AUTO) 10.9 % (1.0-10.0); NEUTROPHILS % (AUTO) 61.1 % (45.0-75.0); PLATELET COUNT 300 K/UL (150-450); RED BLOOD COUNT 5.77 M/UL (4.70-6.10); RED CELL DISTRIBUTION WIDTH 13.6 % (11.6-14.8); WHITE BLOOD COUNT 7.6 K/UL (4.8-10.8)
--- NOTE | 2020-07-12 15:11 | Emergency Room Report ---
History of Present Illness General Chief Complaint: Abdominal Pain Source: Patient (Nereida Hendricks) Present Illness HPI 45 YO Male w. hx of DM presents to the ED c/o 05/14 in severity abdominal pain and testicular pain x 2 days. Pt. reports constipation x 3 days. He denies hematuria, urinary frequency or urgency. He denies testicular swelling. Pt. reports testicular pain with "moving around". He reports nausea but denies vomiting. he denies fevers or chills. He reports diffuse low back pain. He denies excessive thirst. He denies rashes, genital sores/lesions, swollen tender lymph nodes or penile discharge. Pt. reports he believes he has a UTI. Pt. reports cloudy urine. He reports his sugar has been controlled for the most part. (Nereida Hendricks) Allergies: Coded Allergies: No Known Allergies (Unverified , 01/15/16) COVID-19 Screening Contact w/high risk pt: No Experienced COVID-19 symptoms?: No COVID-19 Testing performed SERVICE CENTER TECHNICIAN: No (Nereida Hendricks) Patient History Past Medical History: see triage record, DM Past Surgical History: none Pertinent Family History: none Reviewed Nursing Documentation: PMH: Agreed; PSxH: Agreed (Nereida Hendricks) Nursing Documentation-PMH Hx Hypertension: Yes Hx Diabetes: Yes Hx Gastrointestinal Problems: Yes - GERD (Nereida Hendricks) Review of Systems All Other Systems: negative except mentioned in HPI (Nereida Hendricks) Physical Exam Vital Signs Date Time Temp Pulse Resp B/P (MAP) Pulse Ox O2 Delivery O2 Flow Rate FiO2 07/12/20 14:15 99.0 124 30 123/66 (85) 98 Room Air Sp02 EP Interpretation: reviewed, normal General Appearance: no apparent distress, alert, GCS 15, non-toxic Head: normocephalic, atraumatic Eyes: bilateral eye normal inspection, bilateral eye PERRL ENT: hearing grossly normal, normal voice Neck: full range of motion Respiratory: lungs clear, normal breath sounds, speaking full sentences Cardiovascular #1: regular rate, rhythm Gastrointestinal: normal bowel sounds, soft, non-distended, no guarding, tenderness - Lower abdomen diffusely. Genitourinary: normal inspection, no CVA tenderness Musculoskeletal: normal range of motion, gait/station normal, non-tender Neurologic: alert, motor strength/tone normal, oriented x3, sensory intact, responsive, speech normal Psychiatric: judgement/insight normal Skin: no rash, normal color Lymphatic: no adenopathy (Nereida Hendricks) Medical Decision Making PA Attestation Dr. Julian is my supervising Physician whom patient management has been discussed with. (Nereida Hendricks) Diagnostic Impression: Primary Impression: UTI (urinary tract infection) Qualified Codes: N30.01 - Acute cystitis with hematuria Additional Impressions: Abdominal pain Qualified Codes: R10.9 - Unspecified abdominal pain Constipation Qualified Codes: K59.00 - Constipation, unspecified Hyponatremia ER Course 45 YO Male w. hx of DM presents to the ED c/o 05/14 in severity abdominal pain and testicular pain x 2 days. Pt. reports constipation x 3 days. He denies hematuria, urinary frequency or urgency. He denies testicular swelling. Pt. reports testicular pain with "moving around". He reports nausea but denies vomiting. he denies fevers or chills. He reports diffuse low back pain. He denies excessive thirst. He denies rashes, genital sores/lesions, swollen tender lymph nodes or penile discharge. Pt. reports he believes he has a UTI. Pt. reports cloudy urine. He reports his sugar has been controlled for the most part. Ddx considered but are not limited to Diverticulitis, acute appendicitis, diarrhea,UC, PUD, GE, pancreatitis, gallstone, UTI, testicular torsion, epididymitis, hydrocele just name a few Vital signs: Patient is tachycardic however the remaining vital signs are WNL, pt. is afebrile H&PE are most consistent with: -Patient is nontoxic in appearance. In mild distress due to pain. No respiratory distress. ORDERS: -CBC: Unremarkable -CMP: Hyponatremia, creatinine is 1.5 and BUN is 20-suspected dehydration - Lipase: unremarkable - 388 -UA: Evidence of bacterial infection with presence of bacteria as well as increase in inflammatory markers -Presence of Yeast in the urine. -EKG: Sinus tachycardia -Rapid COVID: Pending. -Lactic Acid: Pending - Bld Cultures: Pending ED INTERVENTIONS: -- Rocephin 1g IV -150mg Diflucan PO - morphine 4mg x 2 -Mylanta PO DISPOSITION: Pt. to be admitted for cystitis, hyponatremia, pain control and IV abx. --DISPOSITION: Pt. Requests AMA as insurance wants pt. to be transferred to associated hospital. Pt. does not want to be transferred. - At this time the patient is requesting to leave AGAINST MEDICAL ADVICE. I believe that this patient has the capacity to make decisions on his own. I discussed with the patient the risks of leaving AMA. Some of these risks include delay in diagnosis and treatment, as well as worsening of symptoms, organ damage, and permanent disability or even . After discussing these risks with the patient. He continues to express his want to leave AGAINST MEDICAL ADVICE. I encouraged the patient to return at any time, and that he will be welcome here in the emergency department to continue medical management. Labs Test 07/12/20 14:32 07/12/20 14:42 07/12/20 17:25 POC Whole Blood Glucose 192 MG/DL (74-106) White Blood Count 7.6 K/UL (4.8-10.8) Red Blood Count 5.77 M/UL (4.70-6.10) Hemoglobin 16.3 G/DL (14.2-18.0) Hematocrit 45.7 % (42.0-52.0) Mean Corpuscular Volume 79 FL (80-99) Mean Corpuscular Hemoglobin 28.3 PG (27.0-31.0) Mean Corpuscular Hemoglobin Concent 35.7 G/DL (32.0-36.0) Red Cell Distribution Width 13.6 % (11.6-14.8) Platelet Count 300 K/UL (150-450) Mean Platelet Volume 7.8 FL (6.5-10.1) Neutrophils (%) (Auto) 61.1 % (45.0-75.0) Lymphocytes (%) (Auto) 27.3 % (20.0-45.0) Monocytes (%) (Auto) 10.9 % (1.0-10.0) Eosinophils (%) (Auto) 0.0 % (0.0-3.0) Basophils (%) (Auto) 0.7 % (0.0-2.0) Sodium Level 131 MMOL/L (136-145) Potassium Level 4.9 MMOL/L (3.5-5.1) Chloride Level 96 MMOL/L (98-107) Carbon Dioxide Level 23 MMOL/L (21-32) Anion Gap 12 mmol/L (5-15) Blood Urea Nitrogen 23 mg/dL (7-18) Creatinine 1.5 MG/DL (0.55-1.30) Estimat Glomerular Filtration Rate 50.2 mL/min (>60) Glucose Level 185 MG/DL (74-106) Calcium Level 9.0 MG/DL (8.5-10.1) Total Bilirubin 0.6 MG/DL (0.2-1.0) Aspartate Amino Transf (AST/SGOT) 45 U/L (15-37) Alanine Aminotransferase (ALT/SGPT) 55 U/L (12-78) Alkaline Phosphatase 91 U/L (46-116) Total Protein 8.0 G/DL (6.4-8.2) Albumin 3.4 G/DL (3.4-5.0) Globulin 4.6 g/dL Albumin/Globulin Ratio 0.7 (1.0-2.7) Lipase 388 U/L (73-393) Urine Color Yellow Urine Appearance Slightly cloudy Urine pH 8 (4.5-8.0) Urine Specific [place] 1.020 (1.005-1.035) Urine Protein 3+ (NEGATIVE) Urine Glucose (UA) 4+ (NEGATIVE) Urine Ketones Negative (NEGATIVE) Urine Blood 1+ (NEGATIVE) Urine Nitrite Negative (NEGATIVE) Urine Bilirubin Negative (NEGATIVE) Urine Urobilinogen Normal MG/DL (0.0-1.0) Urine Leukocyte Esterase 3+ (NEGATIVE) Urine RBC 2-4 /HPF (0 - 0) Urine WBC 40-60 /HPF (0 - 0) Urine Squamous Epithelial Cells Many /LPF (NONE/OCC) Urine Bacteria Many /HPF (NONE) Urine Yeast Moderate /HPF (NONE) (Nereida Hendricks) ER Course I received Nasopharyngeal PCR which was positive. I called patient at his listed number but was unable to reach him. Will endorse finding to oncoming ER physician, Dr Mendez (Mitzy [email or web address]) EKG Diagnostic Results Troponin ordered: No EKG Time: 14:53 Rate: tachycardiac - 106 Rhythm: NSR ST Segments: no acute changes ASA given to the pt in ED: No PA Scribe Text This Interpretation was scribed by KRISTOPHER Hendricks. (Nereida Hendricks) CT/MRI/US Diagnostic Results CT/MRI/US Diagnostic Results #1: Imaging Test Ordered: CT Abdomen and Pelvis w. Contrast Impression " IMPRESSION: MULTIFOCAL PERIPHERAL GROUND GLASS INFILTRATES IN THE LUNG BASES. CONSIDER POSSIBLE COVID VIRAL PNEUMONITIS. NO SIGN OF ACUTE DISEASE IN THE ABDOMEN AND PELVIS. TINY FAT DENSITY RIGHT ADRENAL NODULE LIKELY A MYELOLIPOMA. MILD INCREASED STOOL LUCENCIES IN THE COLON. ." --Per official radiology report- Please see report for specific details. CT/MRI/US Diagnostic Results #2: Imaging Test Ordered: Testicular US Impression " IMPRESSION: NO TESTICULAR MASS OR TORSION. SMALL LEFT VARICOCELE. ." --Per official radiology report- Please see report for specific details. (Nereida Hendricks) Last Vital Signs Date Time Temp Pulse Resp B/P (MAP) Pulse Ox O2 Delivery O2 Flow Rate FiO2 07/12/20 14:15 99.0 124 30 123/66 (85) 98 Room Air (Nereida Hendricks) Disposition: AGAINST MEDICAL ADVICE Condition: Serious Scripts Ciprofloxacin* (CIPRO*) 500 Mg Tablet 500 MG PO BID for 7 Days, #14 TAB Prov: Nereida Hendricks 07/12/20 Docusate Sodium* (COLACE*) 100 Mg Capsule 100 MG ORAL THREE TIMES A DAY for 10 Days, #30 CAP Prov: Nereida Hendricks 07/12/20 Lactulose (LACTULOSE*) 20 Gm/30 Ml Solution 30 ML ORAL QID, #360 ML 0 Refills Prov: Nereida Hendricks 07/12/20 Nereida Hendricks Jul 12, 2020 15:11 Mitzy Slaughter D.O. Jul 14, 2020 06:03
[2020-07-12] MEDS ORDERED: Morphine Sulfate 4mg/ml Inj (IV USE ONLY) IVP ONE ×2 (15:15→18:30)
--- NOTE | 2020-07-12 16:12 | Diagnostic Imaging Report ---
EXAM: ULTRASOUND US Testicular Scrotum CLINICAL HISTORY: Scrotal pain x3-4 days. COMPARISON: None TECHNIQUE: Ultrasound examination of the scrotum includes grayscale images, and color and spectral doppler analysis. FINDINGS: The right testis measures 4.3 x 2.1 x 3.7 cm. The left testis measures 4.6 x 2.4 x 3 cm. There is no intratesticular mass. Normal vascular flow seen bilaterally. The epididymides appear unremarkable. Small amount of scrotal fluid noted bilaterally. There is a small left varicocele. No hernia demonstrated. IMPRESSION: NO TESTICULAR MASS OR TORSION. SMALL LEFT VARICOCELE.
--- NOTE | 2020-07-12 16:24 | Diagnostic Imaging Report ---
EXAM: CT CT Abdomen Pelvis w/Contrast INDICATION: 2 day history of severe abdominal pain and testicular pain. Constipation x3 days. COMPARISON: None TECHNIQUE: Axial images were obtained through the abdomen pelvis with intravenous contrast. Sagittal and coronal reformats are generated. All CT scans at this facility are performed using dose modulation techniques as appropriate to a performed exam including the following: automated exposure control with adjustment of the mA and/or kV according to patient size. RADIATION DOSE: CTDIvol: 9.9 mGy DLP: 532 mGy-cm Dose information generated by the CT scanner is available in PACS. FINDINGS: Multifocal groundglass infiltrates noted in both lung bases. Consider possible Covid viral pneumonitis. The liver and spleen are homogeneous. Gallbladder is without sludge or stone and there is no wall thickening. The pancreas is unremarkable. The left adrenal is unremarkable. There is a tiny fat density right adrenal nodule likely a myelolipoma. The kidneys are normal in size, shape and axis. Small bowel loops are nondistended. Mild increased stool lucencies noted in the colon. The appendix is normal. There is no free fluid or free air. No pathologic adenopathy demonstrated. Urinary bladder appears unremarkable. There is no suspicious superficial soft tissue or osseous abnormality. IMPRESSION: MULTIFOCAL PERIPHERAL GROUND GLASS INFILTRATES IN THE LUNG BASES. CONSIDER POSSIBLE COVID VIRAL PNEUMONITIS. NO SIGN OF ACUTE DISEASE IN THE ABDOMEN AND PELVIS. TINY FAT DENSITY RIGHT ADRENAL NODULE LIKELY A MYELOLIPOMA. MILD INCREASED STOOL LUCENCIES IN THE COLON.
[2020-07-12] MEDS ORDERED: COLACE100 MG ORAL (16:52)
[2020-07-12] MEDS ORDERED: LACTULOSE20 GM/301 ORAL (16:52)
[2020-07-12] MEDS ORDERED: Mylanta II UD 30ml ORAL ONE (17:00)
[2020-07-12] MEDS ORDERED: cefTRIAXone 1 GM in NS 55 ML IVPB ONE (17:15)
[2020-07-12 17:52] LABS: APPEARANCE,URINE SLIGHTLY CLOUDY; BILIRUBIN, URINE NEGATIVE (NEGATIVE); GLUCOSE, URINE (UA) 4+ (NEGATIVE); KETONES,URINE NEGATIVE (NEGATIVE); LEUKOCYTE ESTERASE ,URINE 3+ (NEGATIVE); NITRITE,URINE NEGATIVE (NEGATIVE); PH,URINE 8 (4.5-8.0); PROTEIN,URINE 3+ (NEGATIVE); UROBILINOGEN,URINE NORMAL MG/DL (0.0-1.0)
[2020-07-12 17:54] LABS: COLOR,URINE YELLOW
[2020-07-12] MEDS ORDERED: Fluconazole 150mg tab ORAL ONE (18:30)
[2020-07-12] MEDS ORDERED: CIPRO500 MG PO (18:37)
[2020-07-12 18:45] VITALS: BP 122/7
== END 2020-07-12 18:45 | disposition left against medical advice (07) ==
LOC: EMR 14:35
DX: N30.01 Acute cystitis with hematuria (principal); K59.00 Constipation, unspecified; E87.1 Hypo-osmolality and hyponatremia; Z20.828 Contact with and (suspected) exposure to other viral communicable diseases; N50.819 Testicular pain, unspecified; I10 Essential (primary) hypertension; E11.9 Type 2 diabetes mellitus without complications; K21.9 Gastro-esophageal reflux disease without esophagitis; I86.1 Scrotal varices
CPT/HCPCS: 36415; 74177; 76870; 80053; 81003; 82962; 83690; 85025; 87086; 93005; 96361; 96365; 96375; 96376; J0696; J2270; J7030; Q9965; U0004; Z7502; 99284